=== PATIENT | male | born 1960 | race Caucasian/White ===

== ENCOUNTER 2016-12-08 09:45 | Emergency (ER) | payer SELFPAY ==
[~2016-12-08] VITALS: Ht 167.6 cm; Wt 90.7 kg
[2016-12-08 10:00] VITALS: BP_SYST 136
[2016-12-08 10:34] LABS: BASOPHILS % (AUTO) 0.5 % (0.0-2.0); EOSINOPHILS # (AUTO) 0.4 K/uL (0.0-0.4); EOSINOPHILS % (AUTO) 4.1 % (0.0-4.0); HEMATOCRIT 43.6 % (36-54); HEMOGLOBIN 14.4 g/dL (14.0-18.0); LYMPHOCYTES # (AUTO) 1.9 K/uL (1.0-5.5); LYMPHOCYTES % (AUTO) 21.3 % (20.5-51.5); MEAN CORPUSCULAR HEMOGLOBIN 30 pg (27-31); MEAN CORPUSCULAR HGB CONC 33 % (32-36); MEAN CORPUSCULAR VOLUME 92 fL (79.0-98.0); MONOCYTES # (AUTO) 0.5 K/uL (0.0-1.0); MONOCYTES % (AUTO) 5.3 % (1.7-9.3); NEUTROPHILS # (AUTO) 6.3 K/uL (1.8-7.7); NEUTROPHILS % (AUTO) 68.8 % (40.0-70.0); PLATELET COUNT (AUTO) 325 K/uL (130-430); RED BLOOD CELL COUNT(AUTO) 4.76 MIL/uL (4.2-6.2); RED CELL DISTRIBUTION WIDTH 11.7 % (9.0-15.0); WHITE BLOOD COUNT (AUTO) 9.1 K/uL (4.8-10.8)
[2016-12-08 10:49] LABS: CALCIUM 8.9 mg/dL (8.4-11.0); CREATININE 0.77 mg/dL (0.55-1.30); POTASSIUM 4.5 mmol/L (3.5-5.1)
[2016-12-08 10:55] LABS: ALBUMIN 3.5 g/dL (3.4-4.8); TOTAL BILIRUBIN 0.4 mg/dL (0.0-1.0); TOTAL PROTEIN, SERUM 7.8 g/dL (6.4-8.3)
[2016-12-08 11:50] VITALS: BP_SYST 130
== END 2016-12-08 11:49 | disposition home or self-care (01) ==
LOC: SED 09:45
DX: K64.4 Residual hemorrhoidal skin tags (principal); I10 Essential (primary) hypertension; Z88.0 Allergy status to penicillin
CPT/HCPCS: 36415; 80053; 82272; 85025; 85610-TC; 85730-TC; 99284; 99285

== ENCOUNTER 2021-06-30 14:30 | Inpatient (IN) | payer MEDICAID, SELFPAY ==
[~2021-06-30] VITALS: Ht 154.9 cm; Wt 90.7 kg
[2021-06-30 14:40] VITALS: BP_SYST 151
--- NOTE | 2021-06-30 14:40 | NUR ---
Pt. bib and daughter with c/o ROWELL 06/12 and weakness since last night, pt. family states he is so weak difficulty walking, has overall body aches, no N/V/D
--- NOTE | 2021-06-30 14:40 | NUR ---
Patient to ER bed 2 to gown for evaluation. Side rails up. Assumed care.
--- NOTE | 2021-06-30 14:54 | NUR ---
ER at bedside examining patient.
--- NOTE | 2021-06-30 14:54 | NUR ---
Patient swabbed for covid + influenza. Sample brought to the lab.
[2021-06-30] MEDS ORDERED: ACETAMINOPHEN 325 MG TABLET PO ONE (15:00)
[2021-06-30] MEDS ORDERED: NACL 0.9% 1,000 ML IV ONE ×2 (15:00→17:30)
--- NOTE | 2021-06-30 15:09 | NUR ---
# 20 gauge angiocath placed to left hand. Use of asceptic technique. Opsite placed over site. Blood return noted. Blood for lab drawn from site. Flushed with 10 cc of normal saline. No evidence of infiltration noted. Patient tolerated well.
--- NOTE | 2021-06-30 15:11 | NUR ---
radiology at bedside for chest xray
[2021-06-30 15:22] LABS: HEMATOCRIT 48.1 % (36-54); HEMOGLOBIN 16.5 g/dL (14.0-18.0); MEAN CORPUSCULAR HEMOGLOBIN 31 pg (27-31); MEAN CORPUSCULAR HGB CONC 34 % (32-36); MEAN CORPUSCULAR VOLUME 89 fL (79.0-98.0); PLATELET COUNT (AUTO) 192 K/uL (130-430); RED BLOOD CELL COUNT(AUTO) 5.42 MIL/uL (4.2-6.2); RED CELL DISTRIBUTION WIDTH 13.5 % (9.0-15.0); WHITE BLOOD COUNT (AUTO) 18.8 K/uL (4.8-10.8)
[2021-06-30 15:36] LABS: CALCIUM 8.8 mg/dL (8.4-11.0); CREATININE 0.84 mg/dL (0.55-1.30); POTASSIUM 3.8 mmol/L (3.5-5.1)
--- NOTE | 2021-06-30 15:36 | NUR ---
O2 sat 90 to 91% while sleeps, O2 2L/min started via NC
[2021-06-30 15:42] LABS: ALBUMIN 3.6 g/dL (3.4-4.8); TOTAL BILIRUBIN 1.3 mg/dL (0.0-1.0)
--- NOTE | 2021-06-30 15:49 | NUR ---
O2sat 95% on 2L/NC
[2021-06-30] MEDS ORDERED: METF-518 PO (16:28)
[2021-06-30] MEDS ORDERED: OSELTAMIVIR PHOSPHATE 75 MG CAPSULE PO ONE (16:30)
[2021-06-30] MEDS ORDERED: KETOROLAC TROMETHAMINE 30 MG VIAL IVP ONE (16:30)
[2021-06-30] MEDS ORDERED: HYDR25TA4 PO (16:30)
[2021-06-30] MEDS ORDERED: LIP80 PO (16:30)
--- NOTE | 2021-06-30 16:31 | NUR ---
Medication reconciliation completed with information provided by pts. daughter. Any prior medication reconciliation on file was reviewed and corrected.
[2021-06-30 16:52] LABS: BILIRUBIN,URINE NEGATIVE (NEGATIVE); BLOOD, URINE 1+ (NEGATIVE); CLARITY/URINE CLEAR (CLEAR); COLOR,URINE YELLOW (YELLOW); GLUCOSE,URINE NEGATIVE (NEGATIVE); KETONES,URINE NEGATIVE (NEGATIVE); LEUKOCYTE ESTERASE ,URINE NEGATIVE (NEGATIVE); NITRITE, URINE NEGATIVE (NEGATIVE); PH,URINE 5.5 (5.0-8.0); PROTEIN URINE NEGATIVE (NEGATIVE); UROBILINOGEN,URINE 0.2 (0.2-1.0)
--- NOTE | 2021-06-30 17:04 | NUR ---
IGNACIO Bernardo at bedside examining patient.
[2021-06-30] MEDS ORDERED: DEXTROSE 50% JECT 50 ML DISP.SYRIN IVP PRN (17:30)
[2021-06-30] MEDS ORDERED: IPRATROPIUM/ALBUTEROL SULFATE 3 ML AMPUL.NEB (DUONEB) INH PRN (17:30)
[2021-06-30] MEDS ORDERED: cloNIDine HCL 0.1 MG TABLET PO PRN (17:30)
[2021-06-30] MEDS ORDERED: ONDANSETRON HCL 4 MG/2 ML VIAL IVP PRN (17:30)
[2021-06-30] MEDS ORDERED: KETOROLAC TROMETHAMINE 15 MG VIAL IVP PRN (17:30)
[2021-06-30] MEDS ORDERED: ZOLPIDEM TARTRATE 5 MG TABLET PO PRN (17:30)
[2021-06-30] MEDS ORDERED: NACL 0.9% 1,000 ML IV SCH (17:30)
[2021-06-30 17:36] LABS: BACTERIA,URINE FEW /HPF (None Seen); WBC,URINE 0-3 /HPF (0-3)
--- NOTE | 2021-06-30 18:00 | NUR ---
Patient will be admitted to care of Dr. Colvin. Admitted to tele unit. Will go to room 124A. Belongings list completed. Complete and up to date summary report printed. SBAR report given at bedside with Ricki opportunity for questions.
[2021-06-30 18:01] LABS: BAND % (MANUAL) 9 % (0-6); BASOPHILS % (MANUAL) 0 % (0-2); EOSINOPHILS % (MANUAL) 0 % (0-7); LYMPHOCYTES % (MANUAL) 1 % (20-46); MONOCYTES % (MANUAL) 9 % (0-11)
[2021-06-30 18:09] VITALS: BP_SYST 121
--- NOTE | 2021-06-30 18:20 | NUR ---
PATIENT ADMITTED TO THE UNIT, BROUGHT BY NARESH, CHARGE NURSE ROSETTA RECEIVED REPORT THEN RELAYED REPORT TO PRIMARY NURSE, PATIENT IN BED, NO S/S OF DISTRESS, A/OX4, ENGLISH SPEAKING, IV L HAND 20G, ALLERGY TO PENICILLIN, VITALS TAKEN AND STABLE, NO S/S OF DISTRESS, TOLERATING CARE, WILL CONTINUE TO MONITOR.
--- NOTE | 2021-06-30 18:41 | NUR ---
CONSULTATION PAGED/CALLED Reason for Consultation: SEPSIS Person Who was Notified: Spoke With Stacey From [facility] Consulting Physician: María Mckinney Paste Worker Specialty: ID Ordering Physician: Vinicius Mckinney
[2021-06-30 18:59] VITALS: BP_SYST 126
--- NOTE | 2021-06-30 19:01 | NUR ---
COVID PCR TEST DONE AND SUBMITTED TO LAB PER DR CESPEDES.
--- NOTE | 2021-06-30 19:15 | NUR ---
OPENING NOTES: Received patient report from morning shift nurse. Patient in bed, AAOx4, breathing evenly and nonlabored on room air, no s/s of distress. Patient has an IV on the left hand 20G, patent, benign, and flushing. No s/s of infection or infiltration. Educated patient on plan of care and call light use. Patient verbalized understanding with return demonstration. Fall/safety/isolation precaution. Will continue to monitor.
[2021-06-30] MEDS: LACTOBACILLUS RHAMNOSUS GG 1 CAP CAPSULE PO SCH (21:45)
[2021-06-30] MEDS: OSELTAMIVIR PHOSPHATE 75 MG CAPSULE PO SCH (21:45)
[2021-06-30] MEDS: NACL 0.9% 1,000 ML IV SCH (21:45)
[2021-06-30] MEDS: INSULIN REGULAR, HUMAN 100 UNITS/ML, 10 ML VIAL (humuLIN R) SUBCUT PRN (21:50)
[2021-06-30] MEDS: ACETAMINOPHEN 325 MG TABLET PO PRN (23:35)
--- NOTE | 2021-07-01 | NUR ---
ROUNDS: Patient in bed, eyes closed, breathing evenly and nonlabored on room air, no s/s of distress. Will continue to monitor.
[2021-07-01 00:45] VITALS: BP_SYST 149
[2021-07-01 02:01] VITALS: BP_SYST 123
--- NOTE | 2021-07-01 04:15 | NUR ---
IV REINSERTION: Patient accidentally pulled out IV, catheter intact. Inserted new IV in left hand 22G, patent, benign, and flushing.
[2021-07-01] MEDS: INSULIN REGULAR, HUMAN 100 UNITS/ML, 10 ML VIAL (humuLIN R) SUBCUT PRN ×2 (06:42→11:39)
[2021-07-01] MEDS: ACETAMINOPHEN 325 MG TABLET PO PRN ×2 (06:43→17:54)
[2021-07-01] MEDS: NACL 0.9% 1,000 ML IV SCH (06:46)
[2021-07-01 06:58] LABS: BASOPHILS % (AUTO) 0.3 % (0.0-2.0); HEMATOCRIT 43.2 % (36-54); HEMOGLOBIN 14.7 g/dL (14.0-18.0); LYMPHOCYTES # (AUTO) 0.9 K/uL (1.0-5.5); MEAN CORPUSCULAR HEMOGLOBIN 31 pg (27-31); MEAN CORPUSCULAR HGB CONC 34 % (32-36); MEAN CORPUSCULAR VOLUME 90 fL (79.0-98.0); MONOCYTES # (AUTO) 0.6 K/uL (0.0-1.0); MONOCYTES % (AUTO) 5.7 % (1.7-9.3); NEUTROPHILS # (AUTO) 9.1 K/uL (1.8-7.7); PLATELET COUNT (AUTO) 158 K/uL (130-430); RED BLOOD CELL COUNT(AUTO) 4.82 MIL/uL (4.2-6.2); RED CELL DISTRIBUTION WIDTH 13.1 % (9.0-15.0); WHITE BLOOD COUNT (AUTO) 10.6 K/uL (4.8-10.8)
--- NOTE | 2021-07-01 07:00 | NUR ---
CLOSING NOTES: Patient in bed, AAOx4, breathing evenly and nonlabored on room air, no s/s of distress. Patient has an IV on the left hand 22G, patent, benign, and flushing. No s/s of infection or infiltration. Fall/safety/isolation/seizure precaution. Will continue to monitor and endorse care to morning shift nurse.
--- NOTE | 2021-07-01 07:55 | NUR ---
Opening Notes Patient is awake, alert and oriented x4. Serbian speaking only, able to follow simple commands. Pt is diaphoretic. Nurse assisted patient by giving washcloths to wipe his skin down. Noted temporal temp is 97.2. Pt remains on droplet precautions d//t positive influenza B result. No resp distress noted. Breathing is even and unlabored. Pt denies any pain at this time. IV site on left hand 22 gauge intact at this time. NS @ 100 cc/hr, infusing well. Pt is ambulatory, steady gait. All needs met at this time. Safety and fall precautions in place. Bed in lowest position, locked. Will continue to monitor.
[2021-07-01 08:00] VITALS: BP_SYST 112
[2021-07-01 08:20] LABS: ALBUMIN 3.1 g/dL (3.4-4.8); CALCIUM 7.9 mg/dL (8.4-11.0); CREATININE 0.88 mg/dL (0.55-1.30); POTASSIUM 3.3 mmol/L (3.5-5.1); TOTAL BILIRUBIN 0.9 mg/dL (0.0-1.0)
[2021-07-01] MEDS: levoFLOXacin 500 MG TABLET PO SCH (09:19)
[2021-07-01] MEDS: OSELTAMIVIR PHOSPHATE 75 MG CAPSULE PO SCH ×2 (09:19→20:50)
[2021-07-01] MEDS: LACTOBACILLUS RHAMNOSUS GG 1 CAP CAPSULE PO SCH ×2 (09:19→20:49)
[2021-07-01] MEDS: ATORVASTATIN 20 MG TABLET PO SCH (09:19)
--- NOTE | 2021-07-01 09:45 | NUR ---
Patient is being seen and examined by DR CARDENAS.
[2021-07-01] MEDS ORDERED: POTASSIUM CHLORIDE 20 MEQ TAB.PRT.SR PO ONE (10:00)
--- NOTE | 2021-07-01 10:00 | NUR ---
Notes Patient is laying in bed, resting at this time. No resp distress noted. No signs of diaphoresis. Afebrile. Nurse assisted patient to the bathroom. Provided patient with toothbrush for oral care. No signs of pain at this time. Will continue to monitor.
[2021-07-01 12:00] VITALS: BP_SYST 126
--- NOTE | 2021-07-01 12:00 | NUR ---
Notes Patient is asleep at this time. No resp distress noted. Breathing is even and unlabored. No signs of pain at this time. Will continue to monitor.
--- NOTE | 2021-07-01 14:00 | NUR ---
Notes Patient is laying in bed, resting at this time. No acute distress noted. Breathing is even and unlabored. Afebrile. No diaphoresis at this time. No signs of pain. NO needs at this time. Will continue to monitor.
--- NOTE | 2021-07-01 15:00 | NUR ---
Patient is being seen and examined by DR CESPEDES. Pt may discharge (from ID standpoint) if no fevers tonight. Dr. Cespedes s/w Dr. Colvin. Possible DC tomorrow.
[2021-07-01 16:00] VITALS: BP_SYST 108
--- NOTE | 2021-07-01 16:00 | NUR ---
Notes Patient is awake, alert and oriented x4. No resp distress noted. Breathing is even and unlabored. Denies any pain. Will continue to monitor.
[2021-07-01] MEDS ORDERED: LEVOFLOXACIN IN DEXTROSE 5 % 100 ML IV SCH (17:00)
[2021-07-01] MEDS ORDERED: LEVOFLOXACIN IN DEXTROSE 5 % 100 ML IV ONE (17:00)
--- NOTE | 2021-07-01 17:54 | NUR ---
Low Grade Fever: 99.9/Tylenol Patient is noted with a low grade fever of 99.9. Nurse removed sheets, applied icepacks and administered Tylenol 650 mg at 1754, tolerated well. Pt is also c/o headache as well, /. No diaphoresis at this time. Will reassess later in shift.
--- NOTE | 2021-07-01 18:55 | NUR ---
Closing Notes Patient is awake, alert and oriented x4. No resp distress noted. Breathing is even and unlabored. Pt remains on RA at this time. Pt denies any pain at this time. NO signs of diaphoresis at this time. Left hand 22 gauge intact at this time, NS @ 100 cc/hr, infusing well at this time. Pt is ambulatory, steady gait. Pt remains on droplet precautions for positive influenza result. COVID PCR pending. All needs met at this time. Safety, fall and seizure precautions in place. Bed in lowest position, locked. Will continue to monitor.
[2021-07-01 21:15] VITALS: BP_SYST 135
[2021-07-02 00:05] VITALS: BP_SYST 128
[2021-07-02] MEDS: NACL 0.9% 1,000 ML IV SCH (04:48)
--- NOTE | 2021-07-02 08:00 | NUR ---
MORNING ROUNDS: PATIENT ON THE BED.AWAKE,ALERT AND ORIENTED X4.KHMER SPEAKING NASRE[place]. IV FLUIDS RUNNING AT LEFT HAND INTACT. CALL LIGHT WITH IN REACH. BED LOCKED AT LOWEST POSITION. NOT IN ANY DISTRESS.CONTACT DROPLET PRECAUTION RENDERED.
[2021-07-02] MEDS ORDERED: POTASSIUM CHLORIDE 20 MEQ TAB.PRT.SR PO SCH (09:00)
[2021-07-02] MEDS: OSELTAMIVIR PHOSPHATE 75 MG CAPSULE PO SCH (09:42)
[2021-07-02] MEDS: ATORVASTATIN 20 MG TABLET PO SCH (09:42)
[2021-07-02] MEDS: levoFLOXacin 500 MG TABLET PO SCH (09:42)
[2021-07-02] MEDS: LACTOBACILLUS RHAMNOSUS GG 1 CAP CAPSULE PO SCH (09:42)
[2021-07-02 09:51] VITALS: BP_SYST 148
[2021-07-02 12:03] VITALS: BP_SYST 139
[2021-07-02] MEDS ORDERED: LACT1CAP57 PO (15:50)
[2021-07-02] MEDS ORDERED: POTA20TA83 PO (15:50)
[2021-07-02] MEDS ORDERED: OSEL75CA PO (15:50)
[2021-07-02] MEDS ORDERED: LEVO500T89 PO (15:50)
--- NOTE | 2021-07-02 16:10 | NUR ---
Dietitian Recommendations * [facility] w/ Glucerna BID (ONS provides 440 kcal/day, 20 gm protein/day) * Encourage increase PO intakes LP, RD Please refer to Nutrition Assessment for details. Addendum: 07/02/21 at [address] Amended: Links added.
[2021-07-02 16:25] VITALS: BP_SYST 141
[2021-07-02 16:44] VITALS: BP_SYST 141
--- NOTE | 2021-07-02 19:00 | NUR ---
D/C Patient Patient given medication reconciliation form and D/C instructions. Exit Care provided. Patient's daughter Beryl translated it to german,verbalized understanding. MD discussed with patient the results and treatment provided. Ambulatory with steady gait for discharge to home. Patient in stable condition, ID band removed. IV catheter removed, intact and dressing applied, no active bleeding. E-Script send by Md to preferred pt's pharmacy. Home medications plastic bag given to pt's daughter Beryl with his personal belongings on it. All belongings sent with patient.
== END 2021-07-02 19:00 | disposition home or self-care (01) | DRG 720 ==
LOC: SED 14:30 → STU 16:34
PROVIDERS: ADMIT Internal Medicine; ATTEND Internal Medicine
DX: A41.9 Sepsis, unspecified organism (principal); E87.2 Acidosis; E44.1 Mild protein-calorie malnutrition; J18.9 Pneumonia, unspecified organism; Z20.822 Contact with and (suspected) exposure to COVID-19; J10.1 Influenza due to other identified influenza virus with other respiratory manifestations; E78.5 Hyperlipidemia, unspecified; I10 Essential (primary) hypertension; E66.9 Obesity, unspecified; Z88.0 Allergy status to penicillin; Z79.899 Other long term (current) drug therapy; Z79.84 Long term (current) use of oral hypoglycemic drugs; Z68.37 Body mass index [BMI] 37.0-37.9, adult
CPT/HCPCS: 36415; 36600; 71045; 80053; 81000; 82803-TC; 82962; 83036; 83605; 84484; 85007; 85025; 85027; 86710; 87040-TC; 93005; 96361; 96365; 96375; 99291; G0378; G9035; J1815; J1885; J1956; J2405; U0003

== ENCOUNTER 2022-03-14 10:44 | Emergency (ER) | payer MEDICAID ==
[~2022-03-14] VITALS: Ht 167.6 cm; Wt 95.3 kg
[~2022-03-14 10:44] MED LIST: HYDR25TA4 PO; LACT1CAP57 PO; LEVO500T90 PO; LIP80 PO; METF-518 PO; OSEL75CA PO; POTA-197 PO
--- NOTE | 2022-03-14 11:00 | NUR ---
Triaged pt and placed in Tent 1, pt coming from home ambulatory with steady gait. Pt is A&Ox4. Skin intact. Pt c/o testing positive for covid last week and has been having nausea, abdominal pain 5/10, and loss of tatse and smell. VSS. No chest pain and no sob. No vomiting.
--- NOTE | 2022-03-14 11:06 | NUR ---
DR. CATALAN IN TENT EXAMINING PT.
[2022-03-14 11:07] VITALS: BP_SYST 132
--- NOTE | 2022-03-14 11:54 | NUR ---
Covid and flu swab sent to lab.
[2022-03-14 14:21] VITALS: BP_SYST 132
--- NOTE | 2022-03-14 14:22 | NUR ---
Patient given written and verbal discharge instructions and verbalizes understanding. ER MD discussed with patient the results and treatment provided. Patient in stable condition. ID arm band removed. No Rx given. Patient educated on pain management and to follow up with PMD. Pain Scale 2/10. Opportunity for questions provided and answered. Medication side effect fact sheet provided.
== END 2022-03-14 14:21 | disposition home or self-care (01) ==
LOC: SED 10:44
DX: U07.1 COVID-19 (principal)
CPT/HCPCS: 36415; 71045; 99284

== ENCOUNTER 2023-03-13 16:41 | Inpatient (IN) | payer MEDICAID ==
[~2023-03-13] VITALS: Ht 167.6 cm; Wt 95.3 kg
[~2023-03-13 16:41] MED LIST changes: +LEVO-62 PO; -LEVO500T90 PO
[2023-03-13 16:59] VITALS: BP_SYST 147; PULSE 52; RESP 22; TEMP 98.3; O2SAT 98
--- NOTE | 2023-03-13 16:59 | NUR ---
Patient to ER bed 08 to gown for evaluation. Side rails up.
--- NOTE | 2023-03-13 17:21 | NUR ---
DR LIU IN ROOM FOR EXAM, ATBEDSIDE. MEÑO RN AT BEDSIDE TO ASSIST WITH TRANSLATION
[2023-03-13] MEDS ORDERED: NACL 0.9% 1,000 ML IV ONE (17:30)
[2023-03-13] MEDS ORDERED: KETOROLAC TROMETHAMINE 30 MG VIAL IVP ONE (17:30)
[2023-03-13] MEDS ORDERED: metroNIDAZOLE 500 mg/NS 100 ML IV ONE ×2 (18:15→23:52)
[2023-03-13 18:22] LABS: BASOPHILS # (AUTO) 0.1 K/uL (0.0-0.2); BASOPHILS % (AUTO) 0.3 % (0.0-2.0); HEMATOCRIT 42.8 % (36-54); HEMOGLOBIN 14.3 g/dL (14.0-18.0); LYMPHOCYTES # (AUTO) 1.1 K/uL (1.0-5.5); LYMPHOCYTES % (AUTO) 6.1 % (20.5-51.5); MEAN CORPUSCULAR HEMOGLOBIN 30 pg (27-31); MEAN CORPUSCULAR HGB CONC 33 % (32-36); MEAN CORPUSCULAR VOLUME 90 fL (79.0-98.0); MONOCYTES # (AUTO) 0.9 K/uL (0.0-1.0); NEUTROPHILS # (AUTO) 15.2 K/uL (1.8-7.7); NEUTROPHILS % (AUTO) 88.6 % (40.0-70.0); PLATELET COUNT (AUTO) 226 K/uL (130-430); RED BLOOD CELL COUNT(AUTO) 4.75 MIL/uL (4.2-6.2); WHITE BLOOD COUNT (AUTO) 17.1 K/uL (4.8-10.8)
[2023-03-13] MEDS ORDERED: CETI1TAB2 PO (18:24)
[2023-03-13] MEDS ORDERED: HYDR25TA4 PO (18:24)
--- NOTE | 2023-03-13 18:24 | NUR ---
Medication reconciliation completed with information provided by patient. Any prior medication reconciliation on file was reviewed and corrected.
--- NOTE | 2023-03-13 18:40 | NUR ---
Admit bed requested Patient will be admitted to care of . Admitted to TELE unit. Diagnosis ACUTE APPENDICITIS Inpatient (Yes or No) Y Observation (Yes or No) N Orientation concerns or request close to nursing station (Yes or No) N Covid Status NA On vent or bipap N Isolation requirements N Needs a sitter N From Home (Yes or if No enter name of facility) Y Requires Dialysis (Yes or No) N Med Rec Completed (Yes of No) Y
[2023-03-13 18:44] LABS: ALBUMIN 3.5 g/dL (3.4-4.8); CALCIUM 8.4 mg/dL (8.4-11.0); CREATININE 0.62 mg/dL (0.55-1.30); TOTAL BILIRUBIN 1.2 mg/dL (0.0-1.0)
[2023-03-13] MEDS ORDERED: ACETAMINOPHEN 325 MG TABLET PO PRN ×2 (19:15→19:30)
[2023-03-13] MEDS ORDERED: MUPIROCIN 2% TOPICAL OINTMENT 22 GM NS PRN (19:15)
[2023-03-13] MEDS ORDERED: MORPHINE 2 MG/ML INJ. SYRINGE IVP PRN (19:15)
[2023-03-13] MEDS ORDERED: ZOLPIDEM TARTRATE 5 MG TABLET PO PRN (19:15)
[2023-03-13] MEDS ORDERED: DOCUSATE SODIUM 100 MG CAPSULE PO PRN (19:15)
[2023-03-13] MEDS ORDERED: POTASSIUM CHLORIDE 20 MEQ TAB.PRT.SR PO PRN (19:15)
[2023-03-13] MEDS ORDERED: LORazepam 2 MG/ML VIAL IVP PRN (19:15)
[2023-03-13] MEDS ORDERED: MAGNESIUM SULFATE 50 ML IV PRN (19:15)
[2023-03-13] MEDS ORDERED: ONDANSETRON HCL 4 MG/2 ML VIAL IVP PRN ×2 (19:15→21:15)
[2023-03-13] MEDS ORDERED: fentaNYL CITRATE/PF 100 MCG/2 ML AMP ONE (20:45)
[2023-03-13] MEDS ORDERED: PROPOFOL 200MG/ 20ML VIAL (DIPRIVAN) IV ONE (20:45)
[2023-03-13] MEDS ORDERED: NS IRRIG SOLN 1000 ML IR ONE (20:45)
[2023-03-13] MEDS ORDERED: GLYCOPYRROLATE 0.2 MG/ML VIAL ONE (20:45)
[2023-03-13] MEDS ORDERED: SEVOFLURANE 15 MIN GAS INH ONE (20:45)
[2023-03-13] MEDS ORDERED: NEOSTIGMINE METHYLSULFATE 1 MG/ML, 10 ML VIAL ONE (20:45)
[2023-03-13] MEDS ORDERED: ROCURONIUM BROMIDE 10 MG/ML (ZEMURON) ONE (20:45)
[2023-03-13] MEDS ORDERED: MIDAZOLAM HCL 2 MG/2 ML VIAL (VERSED) ONE (20:45)
[2023-03-13] MEDS ORDERED: LR 1,000 ML IV.SOLN IV ONE (20:45)
[2023-03-13] MEDS ORDERED: NS 1000 ML IV.SOLN IV ONE (20:45)
[2023-03-13] MEDS ORDERED: LIDOCAINE/EPI 1% 1:100000 20 ML VIAL ONE (20:45)
[2023-03-13] MEDS ORDERED: ONDANSETRON HCL 4 MG/2 ML VIAL ONE (20:45)
--- NOTE | 2023-03-13 20:47 | NUR ---
pt taken to surgery with RNs.
[2023-03-13] MEDS ORDERED: fentaNYL CITRATE/PF 100 MCG/2 ML AMP IVP PRN ×2 (21:15)
[2023-03-13] MEDS ORDERED: METOCLOPRAMIDE HCL 10 MG/2 ML VIAL IVP PRN (21:15)
--- NOTE | 2023-03-13 22:55 | NUR ---
INITIAL NOTES; pt. received from OR S/P lap appy with 3 incisions. family at bedside. IV via rt. hand. O2 @ 2 liters per nc. encourage on deep breathing and use of IS. bed alarm on. call light within reach.
[2023-03-13] MEDS ORDERED: cefTRIAXone 1 GM in D5W 50 ML IV SCH (23:00)
[2023-03-13 23:19] VITALS: BP_SYST 122; PULSE 50; RESP 16; TEMP 98
[2023-03-13] MEDS ORDERED: CEFTRIAXONE 1 GM IV ONE (23:51)
[2023-03-13] MEDS: metroNIDAZOLE 500 mg/NS 100 ML IV SCH (23:53)
[2023-03-13] MEDS: MORPHINE 2 MG/ML INJ. SYRINGE IVP PRN (23:54)
[2023-03-14] VITALS (8 sets, daily range): BP systolic 106–124; PULSE 51–64; RESP 16–20; TEMP 96.8–98.2; O2SAT 94–100
--- NOTE | 2023-03-14 00:01 | NUR ---
NOTES: medicated with IV Morphine for c/o postop abdominal pain. start taking ice chips. no vomiting. IV antibiotics started.
[2023-03-14] MEDS: D5NS 1,000 ML IV SCH ×2 (00:22→05:42)
--- NOTE | 2023-03-14 01:30 | NUR ---
NOTES: pt. sleeping. noted relief after pain medication.
[2023-03-14] MEDS ORDERED: metroNIDAZOLE 500 mg/NS 100 ML IV ONE (05:18)
[2023-03-14 05:27] LABS: BASOPHILS % (AUTO) 0.2 % (0.0-2.0); EOSINOPHILS % (AUTO) 0.3 % (0.0-4.0); HEMATOCRIT 38.8 % (36-54); HEMOGLOBIN 12.7 g/dL (14.0-18.0); LYMPHOCYTES # (AUTO) 1.8 K/uL (1.0-5.5); LYMPHOCYTES % (AUTO) 14.7 % (20.5-51.5); MEAN CORPUSCULAR HEMOGLOBIN 30 pg (27-31); MEAN CORPUSCULAR HGB CONC 33 % (32-36); MEAN CORPUSCULAR VOLUME 91 fL (79.0-98.0); MONOCYTES # (AUTO) 0.8 K/uL (0.0-1.0); MONOCYTES % (AUTO) 6.8 % (1.7-9.3); NEUTROPHILS # (AUTO) 9.4 K/uL (1.8-7.7); PLATELET COUNT (AUTO) 201 K/uL (130-430); RED BLOOD CELL COUNT(AUTO) 4.28 MIL/uL (4.2-6.2)
[2023-03-14] MEDS: metroNIDAZOLE 500 mg/NS 100 ML IV SCH ×2 (05:39→14:58)
[2023-03-14 05:42] LABS: CALCIUM 7.6 mg/dL (8.4-11.0); CREATININE 0.69 mg/dL (0.55-1.30)
--- NOTE | 2023-03-14 05:52 | NUR ---
NOTES: pt. awake, taking ice chips. MRSA nares swab done. IV antibiotic infused. needs attended.
[2023-03-14] MEDS ORDERED: KCL 20 mEq in D5/0.45NS 1000mL 1,000 ML IV SCH (06:30)
[2023-03-14] MEDS ORDERED: POTASSIUM CHLORIDE 20 MEQ TAB.PRT.SR PO ONE (06:30)
--- NOTE | 2023-03-14 06:45 | NUR ---
CLOSING NOTES; Dr. Meléndez here, seen pt. with orders of K and change on IVF. for further care and assistance. will endorse to incoming shift.
[2023-03-14] MEDS ORDERED: DEXTROSE 50% JECT 50 ML DISP.SYRIN IVP PRN (07:45)
[2023-03-14] MEDS ORDERED: INSULIN LISPRO SLIDING SCALE 100 UNITS/ML, 3 ML VIAL (humaLOG) SUBCUT PRN (07:45)
[2023-03-14] MEDS ORDERED: NACL 0.9% 1,000 ML IV SCH (07:45)
--- NOTE | 2023-03-14 08:26 | NUR ---
MORNING NOTES Received pt in bed, alert and responsive. vital signs taken, pt encouraged to use spirometer to help him with breathing exercise. Advice pt to sit up and we will assist with ambulatory. Fall precaution maintained. Call light in reach.
[2023-03-14] MEDS ORDERED: HYDR-3917 PO (09:05)
--- NOTE | 2023-03-14 10:50 | NUR ---
AMBULATE PATIENT: ASSISTED PATIENT OUT ON BED. PATIENT AMBULATED IN THE ROOM AND IN THE HALLWAY THEN BACK TO HIS ROOM.WITH STEADY GAIT.
[2023-03-14] MEDS: MORPHINE 2 MG/ML INJ. SYRINGE IVP PRN ×2 (11:24→16:44)
[2023-03-14] MEDS ORDERED: METR-154 PO (13:23)
--- NOTE | 2023-03-14 15:00 | NUR ---
RN ROUNDING: PATIENT TOLERATED FULL LIQUID AND INSTRUCTED TO ADVANCE DIET TOLERATED AT HOME. SURGEON CLEARED PATIENT DISCHARGE HOME WITH ELECTRONIC PRESCRIPTIONS. STABLE. WAITING FOR HIS RIDE.
--- NOTE | 2023-03-14 18:55 | NUR ---
D/C Patient Patient given medication reconciliation form and D/C instructions. Exit Care provided.With daughter at the bedside and interpreted it in Tajik with the patient verbalized understanding. MD discussed with patient the results and treatment provided. Ambulatory with steady gait for discharge to home. Patient in stable condition, ID band removed. IV catheter removed, intact and dressing applied, no active bleeding. Escript sent by MD to patient's preferred pharmacy. Patient educated on pain management. All belongings sent with patient.
== END 2023-03-14 19:00 | disposition home or self-care (01) | DRG 234 ==
LOC: SED 16:41 → STU 18:38
PROVIDERS: ADMIT General Practice; ATTEND General Practice
PROC: 0DTJ4ZZ Resection of Appendix, Percutaneous Endoscopic Approach (ICD-10-PCS; principal; 2023-03-13 20:45)
DX: K35.80 Unspecified acute appendicitis (principal); E83.51 Hypocalcemia; E87.6 Hypokalemia; I10 Essential (primary) hypertension; M81.0 Age-related osteoporosis without current pathological fracture; E78.5 Hyperlipidemia, unspecified; E11.65 Type 2 diabetes mellitus with hyperglycemia; E66.9 Obesity, unspecified; N28.89 Other specified disorders of kidney and ureter; E80.6 Other disorders of bilirubin metabolism; K57.32 Diverticulitis of large intestine without perforation or abscess without bleeding; Z68.33 Body mass index [BMI] 33.0-33.9, adult; Z88.0 Allergy status to penicillin; Z79.899 Other long term (current) drug therapy
CPT/HCPCS: 36415; 76376; 80048; 80053; 83037; 83605; 83735; 85025; 86886; 86900; 86901; 87040; 87081; 88304; 93005; 96374; 99285; C1727; G0378; J0696; J1885; J1956; J2270; J2405; J2704; J2710; J3010; J3465; J3490; J7030; J7042; J7060; J7120; Q9967